=== PATIENT | female | born 1960 | race Caucasian/White ===

== ENCOUNTER 2017-09-04 17:48 | Emergency (ER) | payer MEDICARE, OTHER ==
[2017-09-04 17:49] VITALS: BMI 25.9
[2017-09-04 18:30] VITALS: TEMP 98.7; O2SAT 99
--- NOTE | 2017-09-04 18:39 | ED PDOC ---
Arrival/HPI - General Chief Complaint: Dizziness/Lightheaded Time Seen by Provider: 09/04/17 18:25 Historian: Patient - History of Present Illness Narrative History of Present Illness (Text): 09/04/17 18:34 57 year old female, with past medical history of osteoporosis and arthritis, presents to the Emergency department complaining of bilateral shoulder, upper chest wall, upper back and neck discomfort for past 2 weeks. Patient states unable to sleep well secondary to worsening pain. Patient informs associated intermitted dizziness but none currently. Patient states mild improvement to symptoms after tylenol but presents to the Emergency department for medical evaluation. Patient denies any fever, chills, nausea, vomiting, diarrhea, abdominal pain, shortness of breath or any other complaints. Time/Duration: > week (2 weeks) Symptom Onset: Gradual Symptom Course: Unchanged Quality: Aching Past Medical History - Provider Review Nursing Documentation Reviewed: Yes - Infectious Disease Hx of Infectious Diseases: None - Reproductive Menopause: Yes - Cardiac Hx Hypertension: Yes - Pulmonary Hx Respiratory Disorders: No - Hematological/Oncological Hx Blood Disorders: No - Musculoskeletal/Rheumatological Hx Arthritis: Yes Hx Osteoporosis: Yes - Psychiatric Hx Anxiety: Yes Hx Substance Use: No - Surgical History Hx Section: Yes (X2) - Anesthesia Hx Anesthesia Reactions: No Family/Social History - Physician Review Nursing Documentation Reviewed: Yes Family/Social History: No Known Family HX Smoking Status: Never Smoked Hx Alcohol Use: No Hx Substance Use: No Allergies/Home Meds Allergies/Adverse Reactions: Allergies No Known Allergies Allergy (Verified 09/04/17 18:05) Home Medications: Home Meds Medication Instructions Recorded Confirmed Ergocalciferol (Vitamin D2) 50,000 units PO QWK 03/29/15 09/04/17 [Vitamin D2] Ibandronate Sodium [Boniva] 150 mg PO Q30D 03/29/15 09/04/17 Iron/Folate No.6/Mv,Mins No.40 1 tab PO DAILY 03/29/15 09/04/17 [Corvite Fe Tablet] LORazepam [Ativan] 1 mg PO BID PRN 03/29/15 09/04/17 Methocarbamol [Robaxin] 500 mg PO QID 03/29/15 09/04/17 Pantoprazole Sodium [Protonix] 40 mg PO DAILY 03/29/15 09/04/17 Review of Systems - Physician Review All systems were reviewed & negative as marked: Yes - Review of Systems Constitutional: absent: Fevers Respiratory: absent: SOB Cardiovascular: Chest Pain (upper chest wall discomfort) Gastrointestinal: absent: Abdominal Pain, Diarrhea, Nausea, Vomiting Musculoskeletal: Back Pain, Neck Pain, Other (bilateral shoulder pain) Neurological: Dizziness (sometimes) Physical Exam Vital Signs Reviewed: Yes Vital Signs Temp Pulse Resp BP Pulse Ox 09/04/17 19:52 98.7 F 65 18 155/86 H 99 09/04/17 19:45 98.7 F 65 17 155/86 H 99 09/04/17 17:59 98.7 F 62 16 155/80 H 99 Temperature: Afebrile Blood Pressure: Normal Pulse: Regular Respiratory Rate: Normal Appearance: Positive for: Well-Appearing, Non-Toxic, Comfortable Pain Distress: None Mental Status: Positive for: Alert and Oriented X 3 - Systems Exam Head: Present: Atraumatic, Normocephalic Pupils: Present: PERRL Extroacular Muscles: Present: EOMI Conjunctiva: Present: Normal Neck: Present: Normal Range of Motion. No: MIDLINE TENDERNESS, Paraspinal Tenderness Respiratory/Chest: Present: Clear to Auscultation, Good Air Exchange, Other ( complains of pain to palpation. ). No: Respiratory Distress, Accessory Muscle Use Cardiovascular: Present: Regular Rate and Rhythm, Normal S1, S2. No: Murmurs Abdomen: No: Tenderness, Distention, Peritoneal Signs Back: Present: Normal Inspection, Other (Complains of pain to palpation. ) Upper Extremity: Present: Normal Inspection, Normal ROM, Neurovascularly Intact. No: Cyanosis, Edema Lower Extremity: Present: Normal Inspection, Neurovascularly Intact, Other (No difficulty ambulating). No: Edema Neurological: Present: GCS=15, CN II-XII Intact, Speech Normal Skin: Present: Warm, Dry, Normal Color. No: Rashes Psychiatric: Present: Alert, Oriented x 3, Normal Insight, Normal Concentration Medical Decision Making ED Course and Treatment: 09/04/17 18:32 Impression: 57 year old female presents to the Emergency department for bilateral shoulder, upper chest wall, upper back and neck pain. Plan: -- Labs -- Toradol IM -- Reassess and disposition Prior Visits: Notes and results from previous visits were reviewed. Progress Notes: 09/04/17 19:48 Upon reassessment, patient informs improved symptoms with no new complaints. Patient will be discharged home with Rx for ibuprofen 600mg. Advised patient to follow up with PMD. - Lab Interpretations Lab Results: 09/04/17 18:47 09/04/17 18:47 Lab Results 09/04/17 18:47: Sodium 142, Potassium 4.2, Chloride 104, Carbon Dioxide 27, Anion Gap 15, BUN 16, Creatinine 0.6 L, Est GFR ( Amer) > 60, Est GFR ( Non-Af Amer) > 60, Random Glucose 93, Calcium 9.5 09/04/17 18:47: WBC 5.4, RBC 4.20, Hgb 12.2, Hct 35.9 L, MCV 85.5, MCH 29.0, MCHC 34.0, RDW 13.9, Plt Count 275, MPV 9.0, Gran % 46.4 L, Lymph % (Auto) 43.8 H, Henderson % (Auto) 7.6 H, Eos % (Auto) 2.0, Baso % (Auto) 0.2, Gran # 2.50, Lymph # (Auto) 2.4, Henderson # (Auto) 0.4, Eos # (Auto) 0.1, Baso # (Auto) 0.01 - Medication Orders Current Medication Orders: Discontinued Medications Ketorolac Tromethamine (Toradol) 60 mg IM STAT STA Stop: 09/04/17 18:34 Last Admin: 09/04/17 18:40 Dose: 60 mg MAR Pain Assessment Document 09/04/17 18:40 OCS (Rec: 09/04/17 18:43 [email or web address] Pain Reassessment Is this a pain reassessment? No Sleep Is patient sleeping during reassessment? No Presence of Pain Presence of Pain Yes Pain Scale Used Pain Scale Used Numeric Location Left, Right or Bilateral Right Pain Location Body Site Shoulder Description Description Constant Intensity of Pain at present 10 Aggravating Factors ADL's IM Administration Charges Document 09/04/17 18:40 OCS (Rec: 09/04/17 18:43 [email or web address] Injection Site MAR Injection Site Left Deltoid Charges for Administration # of IM Administrations 1 - Scribe Statement The provider has reviewed the documentation as recorded by the Scribe Adrianna Bond. All medical record entries made by the Scribe were at my direction and personally dictated by me. I have reviewed the chart and agree that the record accurately reflects my personal performance of the history, physical exam, medical decision making, and the department course for this patient. I have also personally directed, reviewed, and agree with the discharge instructions and disposition. Disposition/Present on Arrival - Present on Arrival Any Indicators Present on Arrival: No History of DVT/PE: No History of Uncontrolled Diabetes: No Urinary Catheter: No History of Decub. Ulcer: No History Surgical Site Infection Following: None - Disposition Have Diagnosis and Disposition been Completed?: Yes Diagnosis: Musculoskeletal back pain Disposition: HOME/ ROUTINE Disposition Time: 19:45 Condition: GOOD Discharge Instructions (ExitCare): Upper Back Pain (DC) Additional Instructions: GO BEAL, thank you for letting us take care of you today. Your provider was Chioma Altman MD and you were treated for NECK AND SHOULDER PAIN. The emergency medical care you received today was directed at your acute symptoms. If you were prescribed any medication, please fill it and take as directed. It may take several days for your symptoms to resolve. Return to the Emergency Department if your symptoms worsen, do not improve, or if you have any other problems. Please contact your doctor or call one of the physicians/clinics you have been referred to that are listed on the Patient Visit Information form that is included in your discharge packet. Bring any paperwork you were given at discharge with you along with any medications you are taking to your follow up visit. Our treatment cannot replace ongoing medical care by a primary care provider outside of the emergency department. Thank you for allowing the [facility] team to be part of your care today. Please take anti-inflammatory medication such as IBUPROFEN (Motrin) or NAPROXEN (Aleve) for your pain. If you had an X-Ray or CT scan: A Radiologist will review the ED reading if any change in treatment is needed we will contact you. If you had a blood, urine, or wound culture: It will take several days for the results, if any change in treatment is needed we will contact you. If you had an STI test: It will take 48 hours for the results. Please call after 1 week if you have not heard back. Prescriptions: Ibuprofen [Motrin Tab] 600 mg PO Q8H PRN #20 tab PRN Reason: Pain, Moderate (4-7) Forms: [facility] (Lao)
[2017-09-04 18:54] LABS: BASO # 0.01 K/mm3 (0.0-2.0); BASO % 0.2 % (0.0-3.0); EOS # 0.1 (0.0-0.7); GRAN # 2.5 (1.4-6.5); GRAN % 46.4 % (50.0-68.0); HEMOGLOBIN 12.2 g/dL (12.0-16.0); LYMPH # 2.4 (1.2-3.4); LYMPH % 43.8 % (22.0-35.0); MEAN CELL VOLUME 85.5 fl (80.0-105.0); MONO # 0.4 (0.1-0.6); MONO % 7.6 % (1.0-6.0); RBC 4.2 10^6/uL (3.5-6.1); RED CELL DISTRIBUTION WIDTH 13.9 % (11.5-14.5); WHITE BLOOD COUNT 5.4 10^3/ul (4.5-11.0)
[2017-09-04 19:14] LABS: BLOOD UREA NITROGEN 16 mg/dL (7-21); CALCIUM 9.5 mg/dL (8.4-10.5); GFR AFRICAN-AMERICAN > 60; GFR NON-AFRICAN AMERICAN > 60
[2017-09-04 19:54] VITALS: BP 155/86; PULSE 65; RESP 18
== END 2017-09-04 19:45 | disposition home or self-care (01) ==
LOC: ED 17:48
DX: M54.9 Dorsalgia, unspecified (principal); I10 Essential (primary) hypertension; M81.0 Age-related osteoporosis without current pathological fracture; M19.90 Unspecified osteoarthritis, unspecified site
CPT/HCPCS: 80048; 85025; 96372; 99285; J1885